=== PATIENT | male | born 1955 | race Caucasian/White ===

== ENCOUNTER 2016-08-22 23:35 | Emergency (ER) | payer OTHER ==
[~2016-08-22] VITALS: Ht 177.8 cm; Wt 81.6 kg
--- NOTE | 2016-08-23 00:15 | NUR ---
PT [facility] TO ER BED 8, PT C/O LEFT UPPER ABD PAIN X 2 WEEK. PT AOX3 RR EVEN AND UNLABORED. NO SOB NOTED. NAD NOTED. NO NVD AT THIS TIME. PT GOWNED AND PLACED ON THE MONITOR WAITING FOR MD PRICE.
[2016-08-23] MEDS ORDERED: IV NS 0.9% 1,000 ML BAG IV ONE (00:30)
[2016-08-23] MEDS ORDERED: ONDANSETRON HCL/PF 4 MG/2 ML VIAL IVP ONE (00:30)
[2016-08-23] MEDS ORDERED: MORPHINE SULFATE INJ 2 MG/ML DISP.SYRIN IV ONE (00:30)
[2016-08-23 00:38] LABS: BASOPHILS % (AUTO) 0.3 % (0.0-2.0); EOSINOPHILS # (AUTO) 0.1 /CMM (0.0-0.7); EOSINOPHILS % (AUTO) 0.8 % (0.0-6.0); HEMATOCRIT 49 % (39-51); HEMOGLOBIN 16.3 g/dL (13.5-17.5); LYMPHOCYTES % (AUTO) 27.1 % (20.0-44.0); MEAN CORPUSCULAR HEMOGLOBIN 29 PG (26.0-33.0); MEAN CORPUSCULAR HGB CONC 34 g/dl (31.0-36.0); MEAN CORPUSCULAR VOLUME 88 fL (80-96); MONOCYTES # (AUTO) 0.4 /CMM (0.1-1.30); MONOCYTES % (AUTO) 3.9 % (2.0-12.0); NEUTROPHILS # (AUTO) 7.6 /CMM (1.8-8.9); NEUTROPHILS % (AUTO) 67.9 % (43.0-81.0); PLATELET COUNT (AUTO) 222 /CMM (150-450); RDW COEFFICIENT OF VARIATION 13.4 (11.5-15.0); RED BLOOD CELL COUNT(AUTO) 5.53 MIL/uL (4.5-6.0); WHITE BLOOD COUNT (AUTO) 11.1 K/uL (4.3-11.0)
[2016-08-23 00:44] LABS: APPEARANCE,URINE CLEAR (CLEAR); BILIRUBIN,URINE 1+ (NEGATIVE); BLOOD, URINE 2+ Ery/uL (NEGATIVE); COLOR,URINE YELLOW (YELLOW); KETONES,URINE NEGATIVE (NEGATIVE); LEUKOCYTE ESTERASE ,URINE NEGATIVE (NEGATIVE); NITRITE, URINE NEGATIVE (NEGATIVE); PH,URINE 5.5 (5.0-8.0); PROTEIN,URINE NEGATIVE (NEGATIVE); UGLUCOSE NEGATIVE (NEGATIVE); UROBILINOGEN,URINE 0.2 EU/dL (0.2)
[2016-08-23 00:45] LABS: CALCIUM, SERUM 9.1 mg/dL (8.5-10.1); CARBON DIOXIDE 25 mmol/L (21-32); CHLORIDE 104 mmol/L (98-107); CREATININE 1.1 mg/dL (0.6-1.3); GFR 68 mL/min (>60); GLUCOSE 114 mg/dL (74-106); POTASSIUM 3.8 mmol/L (3.5-5.1); SODIUM SERUM 139 mmol/L (136-145); UREA NITROGEN, BLOOD 16 mg/dL (7-18)
[2016-08-23 00:49] LABS: ALBUMIN 3.8 g/dL (3.4-5.0); BILIRUBIN,DIRECT 0.2 mg/dL (0.0-0.2); LIPASE 621 U/L (73-393)
[2016-08-23 00:49] LABS: ADD URINE CULTURE NO; BACTERIA,URINE None seen /HPF (None Seen); MUCUS,URINE Few /LPF (None Seen); SQUAMOUS EPITHELIAL CELL,UR None Seen /HPF (None Seen); WBC,URINE 0-2 /HPF (0-3)
--- NOTE | 2016-08-23 00:54 | NUR ---
IV removed. Catheter intact and site benign. Pressure and 4x4 applied to site. No bleeding noted. Patient does not wish to proceed with medical care recommended by Dr. AHN. Patient given information related to possible complications, up to and including , which could occur as a result of leaving the hospital at this time. Patient verbalizes understanding of risks involved due to leaving against medical advice. Patient has signed AMA form.
[2016-08-23 00:57] VITALS: BP 131/77
[2016-08-23 01:00] LABS: ALANINE AMINOTRANSFERASE 28 U/L (12-78); ALKALINE PHOSPHATASE 59 U/L (46-116); ASPARTATE AMINOTRANSFERASE 10 U/L (15-37); BILIRUBIN,TOTAL 0.9 mg/dL (0.2-1.0); TOTAL PROTEIN, SERUM 7.1 g/dL (6.4-8.2)
[2016-08-23 01:03] LABS: TROPONIN I < 0.017 ng/mL (0.00-0.056)
== END 2016-08-23 01:00 | disposition left against medical advice (07) ==
LOC: ER 23:40
DX: R10.12 Left upper quadrant pain (principal)
CPT/HCPCS: 36415; 80048; 80076; 81001; 83690; 84484; 85025; 99284; A4606; Z7610; 81000-TC

== ENCOUNTER 2024-08-27 12:15 | Emergency (ER) | payer MEDICARE, BC ==
[~2024-08-27] VITALS: Ht 172.7 cm; Wt 78.0 kg
[2024-08-27] MEDS ORDERED: dexaMETHasone SOD PHOSPHATE 1 ML ONE (12:42)
[2024-08-27] MEDS ORDERED: MORPHINE SULFATE INJ 4 MG/ML DISP.SYRIN ONE (12:43)
[2024-08-27] MEDS: MORPHINE SULFATE INJ 4 MG/ML DISP.SYRIN IM ONE (12:50)
[2024-08-27] MEDS: dexaMETHasone SOD PHOSPHATE 10 MG/ML VIAL IM ONE (12:50)
[2024-08-27] MEDS ORDERED: NAPR-1009 PO (13:17)
[2024-08-27] MEDS ORDERED: METH4TAB3 PO (13:17)
[2024-08-27 13:27] VITALS: BP 142/88; TEMP 98.6; O2SAT 99
== END 2024-08-27 13:27 | disposition home or self-care (01) ==
LOC: ER 12:22
DX: M54.50 Low back pain, unspecified (principal); Z87.442 Personal history of urinary calculi
CPT/HCPCS: 99284; 96372 ×2; J1100; J2270

== ENCOUNTER 2025-04-26 00:42 | Emergency (ER) | payer MEDICARE, BC ==
[~2025-04-26] VITALS: Ht 172.7 cm; Wt 79.4 kg
[~2025-04-26 00:42] MED LIST: METH4TAB3 PO; NAPR-1009 PO
[2025-04-26] MEDS: IPRATROPIUM NEB FS 0.5 MG/2.5 ML AMPUL.NEB NEB ONE (01:05)
[2025-04-26] MEDS: ALBUTEROL FS 2.5 MG/3 ML VIAL.NEB CONTNEB ONE (01:05)
[2025-04-26] MEDS ORDERED: IPRATROPIUM NEB FS 0.5 MG/2.5 ML AMPUL.NEB ONE (01:12)
[2025-04-26] MEDS ORDERED: ALBUTEROL FS 2.5 MG/3 ML VIAL.NEB ONE (01:12)
[2025-04-26 01:15] VITALS: O2SAT 99
[2025-04-26 01:25] VITALS: O2SAT 100
[2025-04-26 01:35] VITALS: O2SAT 99
[2025-04-26 01:45] VITALS: O2SAT 100
[2025-04-26] MEDS ORDERED: PRED50TA PO (02:14)
[2025-04-26] MEDS ORDERED: AZIT250T PO (02:14)
[2025-04-26] MEDS ORDERED: ALBU8.5H8 INH (02:14)
[2025-04-26 02:25] VITALS: BP 128/73; TEMP 98.1; O2SAT 98
== END 2025-04-26 02:25 | disposition home or self-care (01) ==
LOC: ER 01:21
DX: J40 Bronchitis, not specified as acute or chronic (principal); I11.9 Hypertensive heart disease without heart failure; K58.9 Irritable bowel syndrome, unspecified; M79.7 Fibromyalgia; Z87.891 Personal history of nicotine dependence; Z60.2 Problems related to living alone
CPT/HCPCS: 99285; 71045; 93005; 94799; 94640; J7512

== ENCOUNTER 2025-05-03 01:52 | Emergency (ER) | payer MEDICARE, BC ==
[~2025-05-03] VITALS: Ht 170.2 cm; Wt 83.9 kg
[~2025-05-03 01:52] MED LIST changes: +ALBU8.5H8 INH; +AZIT250T PO; +PRED50TA PO
[2025-05-03 02:37] LABS: PLATELET COUNT (AUTO) 227 K/uL (150-450); RED BLOOD CELL COUNT(AUTO) 5.75 MIL/uL (4.5-6.0); RED CELL DISTRIBUTION WIDTH 13.8 % (11.5-15.0); WHITE BLOOD COUNT (AUTO) 11.5 K/uL (4.3-11.0)
[2025-05-03 02:45] LABS: CALCIUM, SERUM 8.9 mg/dL (8.5-10.1); CREATININE 1.1 mg/dL (0.6-1.3); SODIUM SERUM 140 mmol/L (136-145); UREA NITROGEN, BLOOD 22 mg/dL (7-18)
[2025-05-03 02:57] LABS: ASPARTATE AMINOTRANSFERASE 13 U/L (15-37); NT-PRO BNP 52 pg/mL (0-125); TOTAL PROTEIN, SERUM 6.9 g/dL (6.4-8.2)
[2025-05-03] MEDS ORDERED: BENZ-13 PO (05:03)
[2025-05-03 05:42] VITALS: BP 139/80; TEMP 98; O2SAT 98
== END 2025-05-03 05:42 | disposition home or self-care (01) ==
LOC: ER 01:53
DX: R06.02 Shortness of breath (principal); R05.9 Cough, unspecified; I11.9 Hypertensive heart disease without heart failure; E78.5 Hyperlipidemia, unspecified; J18.9 Pneumonia, unspecified organism; K58.9 Irritable bowel syndrome, unspecified; M79.7 Fibromyalgia; Z79.52 Long term (current) use of systemic steroids; Z87.891 Personal history of nicotine dependence; Z60.2 Problems related to living alone; Z20.822 Contact with and (suspected) exposure to COVID-19
CPT/HCPCS: 36415; 71045-TC; 80048-TC; 80076-TC; 83880; 84484-TC; 85025-TC